=== PATIENT | female | born 1990 | race Caucasian/White ===

== ENCOUNTER 2016-12-12 21:49 | Emergency (ER) | payer MEDICAID, OTHER ==
[~2016-12-12] VITALS: Ht 152.4 cm; Wt 44.5 kg
[~2016-12-12 21:49] MED LIST: LANTUSP SQ; NOVOLOGP2 SQ
--- NOTE | 2016-12-12 22:18 | PD ---
HPI Chief Complaint: Psychiatric Symptoms Time Seen by Provider: 22:14 Travel History International Travel<30 days: No Contact w/Intl Traveler<30days: No Traveled to known affect area: No History of Present Illness HPI 26-year-old female that presents to the ED for evaluation of psych. Patient was Fitzpatrick acted by police after apparently she made suicidal statements to her boyfriend. She denies any other medical issues other than diabetes type 1. She does have a cast for the left arm secondary to a previous injury. Denies any chest pain or shortness of breath. Per patient she has not given herself her Levemir dose of the afternoon. She states that she feels suicidal but no homicidal. Denies any history of psychiatric illness. Allergies to peanuts and penicillin. She's never been Fitzpatrick acted in the past. She denies any cuts. Symptoms appear to be worse since today. PFSH Past Medical History Autoimmune Disease: No Anxiety: No Depression: No Cardiovascular Problems: No Diabetes: Yes Genitourinary: No Musculoskeletal: No Neurologic: No Psychiatric: No Respiratory: No Social History Alcohol Use: No Tobacco Use: No Substance Use: No Allergies-Medications (Allergen,Severity, Reaction): Coded Allergies: PEANUTS (Verified Allergy, Severe, Itching, 11/02/09) Penicillin (Verified Allergy, Severe, Anaphylaxis, 11/02/09) Reported Meds & Prescriptions Reported Meds & Active Scripts Active Reported Novolog (Insulin Aspart) 100 Units/Ml Inj 0 SQ DIRECTED Sliding Scale As Directed. Lantus (Insulin Glargine) 100 Units/Ml Inj 30 Units SQ HS Review of Systems Except as stated in HPI: all other systems reviewed are Neg Physical Exam Narrative GENERAL: SKIN: Warm and dry. HEAD: Atraumatic. Normocephalic. EYES: Pupils equal and round. No scleral icterus. No injection or drainage. ENT: No nasal bleeding or discharge. Mucous membranes pink and moist. Tongue is midline. No uvula deviation. NECK: Trachea midline. No JVD. CARDIOVASCULAR: Regular rate and rhythm. No murmurs, S3, S4. RESPIRATORY: No accessory muscle use. Clear to auscultation. Breath sounds equal bilaterally. GASTROINTESTINAL: Abdomen soft, non-tender, nondistended. Hepatic and splenic margins not palpable. MUSCULOSKELETAL: Extremities without clubbing, cyanosis, or edema. No obvious deformities. Full range of motion of the upper and lower extremities bilaterally. 2+ pulses bilaterally. Patient has a cast of the left wrist. NEUROLOGICAL: Awake and alert. No obvious cranial nerve deficits. Motor grossly within normal limits. Five out of 5 muscle strength in the arms and legs. Normal speech. PSYCHIATRIC: Appropriate mood and affect; insight and judgment normal. Data Data Orders Complete Blood Count With Diff (12/12/16 21:59) Comprehensive Metabolic Panel (12/12/16 21:59) Urinalysis - C+S If Indicated (12/12/16 21:59) Ed Urine Pregnancytest Poc (12/12/16 21:59) Psych Screen (12/12/16 21:59) Drug Screen, Random Urine (12/12/16 21:59) Alcohol (Ethanol) (12/12/16 21:59) Salicylates (Aspirin) (12/12/16 21:59) Tylenol (Acetaminophen) (12/12/16 21:59) Insulin Detemir Inj (Levemir Inj) (12/13/16 21:00) MDM Medical Decision Making Medical Screen Exam Complete: Yes Emergency Medical Condition: Yes Medical Record Reviewed: Yes Differential Diagnosis Depression versus suicidal ideation versus anxiety versus adjustment disorder versus mood disorder versus bipolar disorder versus schizophrenia versus paranoid disorder versus psychosis versus substance abuse versus alcohol abuse versus alcohol induced psychosis versus homicidality addition versus cutting versus personality disorder versus diabetes type 1 Narrative Course 26-year-old female that presents to the ED for evaluation of psych. Patient was properly examined and was found to have signs and symptoms consistent appears to be psychiatric illness. No sign of acute medical distress. Patient does tell me that she has not taken her dose of Levimir today. She was given the 35 units of levimir that she requires every day. Patient will be medically clear. Okay to be seen by psych. Labs were drawn. Mental health screening was discussed with the patient. Diagnosis Primary Impression: Suicidal ideation Additional Impression: Diabetes Qualified Code: E10.9 - Type 1 diabetes mellitus without complication Saman Gayle December 12, 2016 22:18
[2016-12-12 22:26] VITALS: BP 114/63; PULSE 92; RESP 18; O2SAT 97
[2016-12-12] MEDS ORDERED: diphenhydrAMINE HCL 50 MG CAP PO ONE (22:30)
[2016-12-12 22:33] VITALS: BP 121/79; PULSE 110; RESP 18; O2SAT 97
[2016-12-12] MEDS ORDERED: GLUCAGON 1 MG/ML VIAL OTHER PRN (23:30)
[2016-12-12] MEDS ORDERED: DEXTROSE 50% IN WATER 50 ML VIAL(D50) IV PUSH PRN (23:30)
[2016-12-12] MEDS ORDERED: INSULIN HUMAN REGULAR 1,000 UNITS/10 ML VIAL SQ ONE ×2 (23:30)
[2016-12-13 00:06] LABS: BACTERIA, URINE RARE /hpf; BLOOD, URINE NEG (NEG); COMMENT (UR) CULTURE INDICATED; CULTURE IF INDICATED CULTURE INDICATED; GLUCOSE,URINE 1000 mg/dL (NEG); KETONE, URINE NEG (NEG); NITRITE,URINE NEG (NEG); PH, URINE 6.5 (5.0-8.5); SQUAMOUS EPITHELIAL CELL URINE 3 /hpf (0-5); URINE COLOR LIGHT-YELLOW (YELLW/STRAW)
[2016-12-13 00:10] LABS: AMPHETAMINE, URINE POS (NEG); BARBITURATES, URINE NEG (NEG); COCAINE, URINE NEG (NEG)
[2016-12-13] MEDS ORDERED: NITROFURANTOIN MONOHYD MACROCR 100 MG CAP PO ONE (00:30)
[2016-12-13 00:51] LABS: ALT (GPT) 18 U/L (10-53); ANION GAP 9 MEQ/L (5-15); AST (GOT) 13 U/L (15-37); BICARBONATE 25.9 MEQ/L (21.0-32.0); BLOOD UREA NITROGEN 9 MG/DL (7-18); CHLORIDE 101 MEQ/L (98-107); GLOMERULAR FILTRATION RATE 128 ML/MIN (>89); SODIUM (NA) 136 MEQ/L (136-145)
[2016-12-13 00:52] LABS: ALKALINE PHOSPHATASE 94 U/L (45-117); TOTAL BILIRUBIN ADULT 0.3 MG/DL (0.2-1.0)
[2016-12-13 00:59] LABS: ACETAMINOPHEN LESS THAN 2.0 MCG/ML (10.0-30.0)
[2016-12-13 02:00] VITALS: BP 113/59; PULSE 89; RESP 18; O2SAT 98
--- NOTE | 2016-12-13 02:31 | PD ---
Physical Exam Time Seen by Provider: 02:29 Narrative Please refer to previous providers documentation for details surrounding the patient's current visit. Data Data Last Documented VS Vital Signs Date Time Temp Pulse Resp B/P Pulse Ox O2 Delivery O2 Flow Rate FiO2 12/13/16 02:00 89 18 113/59 98 Room Air Orders Complete Blood Count With Diff (12/12/16 21:59) Comprehensive Metabolic Panel (12/12/16 21:59) Urinalysis - C+S If Indicated (12/12/16 21:59) Ed Urine Pregnancytest Poc (12/12/16 21:59) Psych Screen (12/12/16 21:59) Drug Screen, Random Urine (12/12/16 21:59) Alcohol (Ethanol) (12/12/16 21:59) Salicylates (Aspirin) (12/12/16 21:59) Tylenol (Acetaminophen) (12/12/16 21:59) Insulin Detemir Inj (Levemir Inj) (12/13/16 21:00) Diphenhydramine (Benadryl) (12/12/16 22:30) Insulin Human Regular Inj (Novolin R Inj (12/12/16 23:30) Insulin Human Regular Inj (Novolin R Inj (12/12/16 23:30) Blood Glucose Goal (Criteria) (12/12/16 23:25) Hypoglycemia 51 - 69 Mg/Dl (12/12/16 23:25) Hypoglycemia 50 Mg/Dl Or < (12/12/16 23:25) Notify Dr: Other (12/12/16 23:25) Dextrose 50% In Kody (Vial) Inj (D50w (Vi (12/12/16 23:30) Glucagon Inj (Glucagon Inj) (12/12/16 23:30) Insulin Human Reg Supp Scale (Novolin R (12/13/16 07:00) Insulin Detemir Inj (Levemir Inj) (12/13/16 00:00) Urine Culture (12/12/16 23:40) Diet Diabetic (12/13/16 Breakfast) Nitrofurantoin Monohyd Macrocr (Macrobid (12/13/16 00:30) Labs Laboratory Tests Test 12/12/16 12/13/16 23:40 00:07 Urine Color LIGHT-YELLOW Urine Turbidity CLEAR Urine pH 6.5 Urine Specific [place] 1.022 Urine Protein NEG mg/dL Urine Glucose (UA) 1000 mg/dL Urine Ketones NEG mg/dL Urine Occult Blood NEG Urine Nitrite NEG Urine Bilirubin NEG Urine Urobilinogen LESS THAN 2.0 MG/DL Urine Leukocyte Esterase LARGE Urine RBC 4 /hpf Urine WBC 11 /hpf Urine Squamous Epithelial 3 /hpf Cells Urine Bacteria RARE /hpf Microscopic Urinalysis Comment CULTURE INDICATED Urine Opiates Screen NEG Urine Barbiturates Screen NEG Urine Amphetamines Screen POS Urine Benzodiazepines Screen NEG Urine Cocaine Screen NEG Urine Cannabinoids Screen NEG Sodium Level 136 MEQ/L Potassium Level 4.0 MEQ/L Chloride Level 101 MEQ/L Carbon Dioxide Level 25.9 MEQ/L Anion Gap 9 MEQ/L Blood Urea Nitrogen 9 MG/DL Creatinine 0.58 MG/DL Estimat Glomerular Filtration 128 ML/MIN Rate Random Glucose 329 MG/DL Calcium Level 9.2 MG/DL Total Bilirubin 0.3 MG/DL Aspartate Amino Transf 13 U/L (AST/SGOT) Alanine Aminotransferase 18 U/L (ALT/SGPT) Alkaline Phosphatase 94 U/L Total Protein 7.0 GM/DL Albumin 3.4 GM/DL Salicylates Level 3.9 MG/DL Acetaminophen Level LESS THAN 2.0 MCG/ML Ethyl Alcohol Level LESS THAN 3 MG/DL MDM Medical Record Reviewed: Yes Supervised Visit with MICHELLE: No Narrative Course Patient was signed out to me with lab work pending. CMP is the hyperglycemia 329. Patient is given subcutaneous regular insulin. She is also given her regular Levemir dosage for nighttime. Urinalysis is with 1000 glucose. Large leukocyte Estrace, 4 RBC, 11 WBC, culture is indicated. CBC is still pending. Pinnae no acute abnormality, patient is medically cleared to undergo psychiatric screening for further evaluation and disposition. Mental health screening discussed with the patient. Psychiatric screen ordered. Diagnosis Primary Impression: Suicidal ideation Additional Impressions: Diabetes Qualified Code: E10.9 - Type 1 diabetes mellitus without complication UTI (urinary tract infection) Qualified Code: N39.0 - Urinary tract infection without hematuria, site unspecified Condition: Stable Kiera Null December 13, 2016 02:31
[2016-12-13 04:55] LABS: AUTOMATED NEUTROPHIL # 4.9 TH/MM3 (1.8-7.7); BASOPHIL % 0.6 % (0.0-2.0); EOSINOPHIL # 0.2 TH/MM3 (0-0.4); EOSINOPHIL % 2.3 % (0.0-4.0); HEMATOCRIT 37.8 % (35.0-46.0); HEMO FLAGS DIFF FINAL; LYMPH % 27.6 % (9.0-44.0); LYMPHOCYTE # 2.2 TH/MM3 (1.0-4.8); MEAN CELL VOLUME 86.6 FL (80.0-100.0); MEAN CORPUSCULAR HEMOGLOBIN 29.7 PG (27.0-34.0); MEAN CORPUSCULAR HGB CONC 34.2 % (32.0-36.0); MONO % 6.6 % (0.0-8.0); NEUT % 62.9 % (16.0-70.0); PLATELET COUNT 301 TH/MM3 (150-450); RED BLOOD COUNT 4.36 MIL/MM3 (4.00-5.30); RED CELL DISTRIBUTION WIDTH 12.3 % (11.6-17.2); WHITE BLOOD COUNT 7.8 TH/MM3 (4.0-11.0)
[2016-12-13 06:00] VITALS: BP 123/68; PULSE 97; RESP 17; O2SAT 95
[2016-12-13] MEDS: INSULIN NovoLIN REGULAR SUPPLEMENTAL SCALE SQ SCH ×2 (07:00→11:38)
[2016-12-13 10:30] VITALS: BP 109/59; PULSE 99; RESP 18
[2016-12-13] MEDS ORDERED: MACR100C2 PO (12:55)
[2016-12-13 15:49] VITALS: BP 118/78; PULSE 78; RESP 20; TEMP 99; O2SAT 98
--- NOTE | 2016-12-13 16:03 | PD ---
History of Present Illness Chief Complaint: Psychiatric Symptoms Time Seen by Provider: 15:00 Travel History International Travel<30 Days: No Contact w/Intl Traveler<30days: No Known affected area: No Legal Status Legal Status: Fitzpatrick Act Fitzpatrick Act Signed By: Luis A Conti History of Present Illness: History of Present Illness HPI 26-year-old female with no previous psychiatric history who presents to ED for psychiatric evaluation under a BA initiated by PAOLA . The report sates that Jada had been talking to her boyfriend about killing herself and that later she asked for her insulin in order to kill herself. Patient denies that she ever said she was going to use her insulin to kill herself and she denies any suicidal ideation. She states " I don't want to hurt myself. I just want to go home and be with my children". Patient did not make any attempts at harming herself. She tells me that she have been having arguments with her boyfriend and that he has been calling her names. She admits that she may have said something to the effect ' I want to " in context of argument. She was monitored in [facility] and she did not present any suicidality and no behavioral concerns. EMR is reviewed and she has no previous contact with [facility] psychiatric department. Current toxicology is positive for amphetamines although patient does not disclose substance use and denies any use upon questioning. Patient is alert, oriented, calm and engaging. Appears older than stated age . She is edentulous. Speech is clear and logical. There is no indication that she is experiencing any hallucinations, no delusions and no paranoia. She denies any depression or anxiety symptoms. She denies any suicidal or homicidal ideation. She is future oriented and she plans on contacting a counselor to initiate counseling. [facility] Past Medical History Autoimmune Disease: No Anxiety: No Depression: No Cardiovascular Problems: No Diabetes: Yes Genitourinary: No Musculoskeletal: No Neurologic: No Psychiatric: No Respiratory: No Psychiatric History Psychiatric History Hx Psychiatric Treatment: DENIES History of Inpatient Treatment: No Guns or firearms in home: No Social History Single female. Mother of 2 boys ages 7 years and 15 months. She is employed at [id number]. She lives with her boyfriend, her 2 children and his parents. Hx Alcohol Use: No Hx Tobacco Use: No Hx Substance Use: Yes Substance Use Type: Alcohol, Marijuana, Nicotine/Cigarettes, Prescription Medications Hx of Substance Use Treatment: No Allergies-Medications (Allergen,Severity, Reaction): Coded Allergies: PEANUTS (Verified Allergy, Severe, Itching, 11/02/09) Penicillin (Verified Allergy, Severe, Anaphylaxis, 11/02/09) Reported Meds & Prescriptions Reported Meds & Active Scripts Active Macrobid (Nitrofurantoin Monoh/Nitrofur Macro) 100 Mg Cap 100 Mg PO BID 7 Days Reported Novolog (Insulin Aspart) 100 Units/Ml Inj 0 SQ DIRECTED Sliding Scale As Directed. Lantus (Insulin Glargine) 100 Units/Ml Inj 30 Units SQ HS Review of Systems Musculoskeletal: COMPLAINS OF: Joint pain (due to fractured arm) Exam Alert: Yes [place]: Person (ox4) Mood: Calm Affect: Appropriate Speech: Clear, Logical Eye Contact: Normal Memory Intact: Comment (no impairmetn) Hallucinations: Other (negative) Delusions: No Suicidal: Ideation (denies any) Homicidal: Ideation (deneis any) Insight/Judgement Fair. Not impaired. MDM Medical Decision Making Medical Record Reviewed: Yes Assessment/Plan 26 year old female that is under a BA for allegedly having stated that she wanted to . She states that her statement was made in context of an argument with her boyfriend. She was also under the influence of amphetamines. Patient was monitored in [place] and did not present any suicidality or behavioral problems. At this time the patient has no suicidal or homicidal ideation as well as no psychiatric symptoms. She is requesting discharge and she does not meet criteria for keeping her under the BA. She will be discharged. Instructed to follow up with outpatient counseling. Orders Complete Blood Count With Diff (12/12/16 21:59) Comprehensive Metabolic Panel (12/12/16 21:59) Urinalysis - C+S If Indicated (12/12/16 21:59) Ed Urine Pregnancytest Poc (12/12/16 21:59) Psych Screen (12/12/16 21:59) Drug Screen, Random Urine (12/12/16 21:59) Alcohol (Ethanol) (12/12/16 21:59) Salicylates (Aspirin) (12/12/16 21:59) Tylenol (Acetaminophen) (12/12/16 21:59) Insulin Detemir Inj (Levemir Inj) (12/13/16 21:00) Diphenhydramine (Benadryl) (12/12/16 22:30) Insulin Human Regular Inj (Novolin R Inj (12/12/16 23:30) Insulin Human Regular Inj (Novolin R Inj (12/12/16 23:30) Blood Glucose Goal (Criteria) (12/12/16 23:25) Hypoglycemia 51 - 69 Mg/Dl (12/12/16 23:25) Hypoglycemia 50 Mg/Dl Or < (12/12/16 23:25) Notify Dr: Other (12/12/16 23:25) Dextrose 50% In Kody (Vial) Inj (D50w (Vi (12/12/16 23:30) Glucagon Inj (Glucagon Inj) (12/12/16 23:30) Insulin Human Reg Supp Scale (Novolin R (12/13/16 07:00) Insulin Detemir Inj (Levemir Inj) (12/13/16 00:00) Urine Culture (12/12/16 23:40) Diet Diabetic (12/13/16 Breakfast) Nitrofurantoin Monohyd Macrocr (Macrobid (12/13/16 00:30) Diet 1800 Ada Cons Carb (12/13/16 Lunch) Results Vital Signs Date Time Temp Pulse Resp B/P Pulse Ox O2 Delivery O2 Flow Rate FiO2 12/13/16 10:30 99 18 109/59 Room Air 12/13/16 06:00 97 17 123/68 95 Room Air 12/13/16 02:00 89 18 113/59 98 Room Air 12/12/16 22:33 110 18 121/79 97 Room Air 12/12/16 22:26 92 18 114/63 97 Room Air Laboratory Tests Test 12/12/16 12/13/16 23:40 00:07 Urine Color LIGHT-YELLOW Urine Turbidity CLEAR Urine pH 6.5 Urine Specific [place] 1.022 Urine Protein NEG Urine Glucose (UA) 1000 Urine Ketones NEG Urine Occult Blood NEG Urine Nitrite NEG Urine Bilirubin NEG Urine Urobilinogen LESS THAN 2.0 Urine Leukocyte Esterase LARGE Urine RBC 4 Urine WBC 11 Urine Squamous Epithelial 3 Cells Urine Bacteria RARE Microscopic Urinalysis Comment CULTURE INDICATED Urine Opiates Screen NEG Urine Barbiturates Screen NEG Urine Amphetamines Screen POS Urine Benzodiazepines Screen NEG Urine Cocaine Screen NEG Urine Cannabinoids Screen NEG White Blood Count 7.8 Red Blood Count 4.36 Hemoglobin 12.9 Hematocrit 37.8 Mean Corpuscular Volume 86.6 Mean Corpuscular Hemoglobin 29.7 Mean Corpuscular Hemoglobin 34.2 Concent Red Cell Distribution Width 12.3 Platelet Count 301 Mean Platelet Volume 9.5 Neutrophils (%) (Auto) 62.9 Lymphocytes (%) (Auto) 27.6 Monocytes (%) (Auto) 6.6 Eosinophils (%) (Auto) 2.3 Basophils (%) (Auto) 0.6 Neutrophils # (Auto) 4.9 Lymphocytes # (Auto) 2.2 Monocytes # (Auto) 0.5 Eosinophils # (Auto) 0.2 Basophils # (Auto) 0.0 CBC Comment DIFF FINAL Differential Comment Sodium Level 136 Potassium Level 4.0 Chloride Level 101 Carbon Dioxide Level 25.9 Anion Gap 9 Blood Urea Nitrogen 9 Creatinine 0.58 Estimat Glomerular Filtration 128 Rate Random Glucose 329 Calcium Level 9.2 Total Bilirubin 0.3 Aspartate Amino Transf 13 (AST/SGOT) Alanine Aminotransferase 18 (ALT/SGPT) Alkaline Phosphatase 94 Total Protein 7.0 Albumin 3.4 Salicylates Level 3.9 Acetaminophen Level LESS THAN 2.0 Ethyl Alcohol Level LESS THAN 3 Date/Time Procedure Status Source Growth 12/12/16 23:40 Urine Culture - Preliminary Resulted Urine Clean Catch Diagnosis Primary Impression: Diabetes Additional Impressions: UTI (urinary tract infection) Adjustment disorder Substance induced mood disorder Ruled Out: Suicidal ideation Departure Forms: Tests/Procedures Patient Instructions: General Instructions, Urinary Tract Infection in Women ( ED), Type 1 Diabetes in Adults (ED), Suicide Prevention for Adults (ED) Additional Instructions: Resume meds as prescribed. Follow up with primary care doctor/clinic as soon as possible. Return to ER for any worsening. Prescriptions Nitrofurantoin Monohydrate Macrocrystals (Macrobid)100 Mg [id number] Mg PO BID 7 Days Prov:Lincoln Alcantar MD 12/13/16 Disposition: 01 DISCHARGE HOME Condition: Stable Problem Qualifiers Primary Impression: Diabetes Qualified Code: E10.9 - Type 1 diabetes mellitus without complication Additional Impressions: UTI (urinary tract infection) Qualified Code: N39.0 - Urinary tract infection without hematuria, site unspecified Adjustment disorder Qualified Code: F43.24 - Adjustment disorder with disturbance of conduct Rosibel Cade December 13, 2016 16:03
[2016-12-13] MEDS ORDERED: INSULIN DETEMIR 100 UNITS/ML VIAL SQ SCH ×2 (21:00)
== END 2016-12-13 15:51 | disposition home or self-care (01) ==
LOC: NEPJ 21:49
DX: E11.9 Type 2 diabetes mellitus without complications (principal); N39.0 Urinary tract infection, site not specified; F43.20 Adjustment disorder, unspecified; F19.14 Other psychoactive substance abuse with psychoactive substance-induced mood disorder; B95.2 Enterococcus as the cause of diseases classified elsewhere; Z72.89 Other problems related to lifestyle; F12.90 Cannabis use, unspecified, uncomplicated
CPT/HCPCS: 80053; 80307; 81001; 84703; 85025; 87077; 87086; 87186; 96372; 99285; J1815; Q0163